=== PATIENT | male | born 1995 | race Caucasian/White ===

== ENCOUNTER 2017-05-17 01:56 | Inpatient (IN) | payer OTHER ==
[~2017-05-17] VITALS: Ht 185.4 cm; Wt 77.1 kg
[2017-05-17 02:05] VITALS: Ht 185.4 cm; Wt 77.1 kg
[2017-05-17 05:06] LABS: BASOPHIL % 0.3 % (0-2); PLATELET COUNT 324 x10^3mcL (130-400); RED CELL DISTRIBUTION WIDTH 13.7 % (11.5-14.5)
[2017-05-17 05:13] LABS: CALCIUM 8.9 mg/dL (8.5-10.1); CARBON DIOXIDE 29.9 mmol/L (21-32); CHLORIDE SERUM 100 mmol/L (98-107); CREATININE SERUM 0.8 mg/dL (0.7-1.3); GFR1 > 60 mL/min; GLUCOSE SERUM 99 mg/dL (74-106); POTASSIUM SERUM 3.6 mmol/L (3.5-5.1); SODIUM SERUM 138 mmol/L (136-145)
[2017-05-17 05:18] LABS: ALBUMIN 3.9 g/dL (3.4-5.0); ALKALINE PHOSPHATASE 94 U/L (46-116); ALT/SGPT 39 U/L (16-63); AST/SGOT 22 U/L (15-37); BILIRUBIN TOTAL 0.7 mg/dL (0.20-1.00); TOTAL PROTEIN, SERUM 7.4 g/dL (6.4-8.2)
[2017-05-17 09:03] LABS: MAGNESIUM 2.3 mg/dL (1.8-2.4)
[2017-05-17 10:14] VITALS: BP 103/63; BP 130/67
[2017-05-17 10:31] VITALS: BP 130/67
[2017-05-17 14:25] VITALS: BP 101/50
[2017-05-17 17:40] VITALS: BP 111/54
[2017-05-17 21:46] VITALS: BP 96/35
[2017-05-17 23:17] VITALS: BP 98/39
[2017-05-18] VITALS (7 sets, daily range): BP systolic 95–120; BP diastolic 40–57
[2017-05-18 07:22] LABS: BASOPHIL % 0.4 % (0-2); PLATELET COUNT 315 x10^3mcL (130-400); RED CELL DISTRIBUTION WIDTH 13.7 % (11.5-14.5)
[2017-05-18 07:47] LABS: CALCIUM 8.6 mg/dL (8.5-10.1); CARBON DIOXIDE 28.2 mmol/L (21-32); CHLORIDE SERUM 104 mmol/L (98-107); CREATININE SERUM 0.6 mg/dL (0.7-1.3); GFR1 > 60 mL/min; GLUCOSE SERUM 83 mg/dL (74-106); POTASSIUM SERUM 4.3 mmol/L (3.5-5.1); SODIUM SERUM 140 mmol/L (136-145)
[2017-05-18] MEDS ORDERED: BD LACTINEX1.4 MG PO (15:04)
[2017-05-18] MEDS ORDERED: CLINDAMYCIN HC300 MG PO (15:04)
[2017-05-18] MEDS ORDERED: NORCO1 TA2 PO (15:51)
[2017-05-18] MEDS ORDERED: STOOL SOFTENER100 MG PO (15:52)
== END 2017-05-18 17:52 | disposition home or self-care (01) | DRG 383 ==
LOC: ED 01:56 → DU 06:44
PROVIDERS: Emergency Medicine; Family Medicine
DX: L03.113 Cellulitis of right upper limb (principal); F11.10 Opioid abuse, uncomplicated; J45.909 Unspecified asthma, uncomplicated; F17.210 Nicotine dependence, cigarettes, uncomplicated; J06.9 Acute upper respiratory infection, unspecified
CPT/HCPCS: 83880; J0696; J1885; J2405; J3490; J7030; J7040; Q0092

== ENCOUNTER 2017-10-27 23:35 | Inpatient (IN) | payer OTHER ==
[~2017-10-27] VITALS: Ht 185.4 cm; Wt 74.4 kg
[~2017-10-27 23:35] MED LIST: BD LACTINEX1.4 MG PO; CLINDAMYCIN HC300 MG PO; NORCO1 TA2 PO; STOOL SOFTENER100 MG PO
[2017-10-27 23:38] VITALS: Ht 185.4 cm; Wt 74.4 kg
[2017-10-28 00:28] LABS: BASOPHIL % 0.5 % (0-2); PLATELET COUNT 310 x10^3mcL (130-400); RED CELL DISTRIBUTION WIDTH 12.7 % (11.5-14.5)
[2017-10-28 00:42] LABS: CALCIUM 8.5 mg/dL (8.5-10.1); CARBON DIOXIDE 31.8 mmol/L (21-32); CHLORIDE SERUM 102 mmol/L (98-107); GFR1 > 60 mL/min; GLUCOSE SERUM 116 mg/dL (74-106); POTASSIUM SERUM 3.4 mmol/L (3.5-5.1); SODIUM SERUM 142 mmol/L (136-145)
[2017-10-28 00:46] LABS: ALBUMIN 3.8 g/dL (3.4-5.0); ALKALINE PHOSPHATASE 92 U/L (46-116); ALT/SGPT 60 U/L (16-63); AST/SGOT 34 U/L (15-37); BILIRUBIN TOTAL 0.63 mg/dL (0.20-1.00)
[2017-10-28 01:51] LABS: microscopic required? NO
[2017-10-28 02:18] LABS: urine erythrocyte NEGATIVE (NEGATIVE)
[2017-10-28 02:25] LABS: AMPHETAMINE QUAL UR POSITIVE (NEG <=1000)
[2017-10-28 03:28] LABS: T3 TOTAL 1.23 ng/mL
[2017-10-28 03:29] LABS: FREE T4 1.2 ng/dL (0.76-1.46); FREE THYROXINE INDEX 3.5 ug/dL (1.4-4.5); T4(THYROXINE) 10.8 ug/dL (4.7-13.3)
[2017-10-28 03:52] LABS: CHOLESTEROL/HDL RATIO 2.8; PHOSPHOROUS 3.5 mg/dL (2.5-4.9)
[2017-10-28 08:02] VITALS: BP 116/72
[2017-10-28 14:34] VITALS: BP 102/57
[2017-10-28 17:55] VITALS: BP 118/55
[2017-10-28 22:06] VITALS: BP 128/64
[2017-10-29 05:05] VITALS: BP 128/76
[2017-10-29 07:19] LABS: BASOPHIL % 0.4 % (0-2); PLATELET COUNT 318 x10^3mcL (130-400); RED CELL DISTRIBUTION WIDTH 12.6 % (11.5-14.5)
[2017-10-29 07:53] LABS: CALCIUM 8.9 mg/dL (8.5-10.1); CARBON DIOXIDE 26.9 mmol/L (21-32); CHLORIDE SERUM 106 mmol/L (98-107); CREATININE SERUM 0.8 mg/dL (0.7-1.3); GFR1 > 60 mL/min; GLUCOSE SERUM 95 mg/dL (74-106); PHOSPHOROUS 3.1 mg/dL (2.5-4.9); POTASSIUM SERUM 3.7 mmol/L (3.5-5.1); SODIUM SERUM 142 mmol/L (136-145)
[2017-10-29 10:00] VITALS: BP 129/76
[2017-10-29] MEDS ORDERED: SERTRALINE50 M1 PO (11:13)
== END 2017-10-29 12:40 | disposition home or self-care (01) | DRG 751 ==
LOC: ED 23:35 → DU 10-28 01:49 → MU 10-29 07:33
PROVIDERS: Family Medicine; Specialist
DX: F33.2 Major depressive disorder, recurrent severe without psychotic features (principal); F15.20 Other stimulant dependence, uncomplicated; F41.9 Anxiety disorder, unspecified; J45.909 Unspecified asthma, uncomplicated; F17.210 Nicotine dependence, cigarettes, uncomplicated; E87.6 Hypokalemia; I08.8 Other rheumatic multiple valve diseases; E05.80 Other thyrotoxicosis without thyrotoxic crisis or storm; Z60.2 Problems related to living alone
CPT/HCPCS: 83880; 84439; G0480; J1956; J3490; J7040; Q0092